=== PATIENT | female | born 2000 | race Asian ===

== ENCOUNTER 2023-06-30 17:23 | Emergency (ER) | payer OTHER, BC ==
[~2023-06-30] VITALS: Ht 165.1 cm; Wt 86.2 kg
[2023-06-30 17:30] VITALS: BP_SYST 132; PULSE 114; RESP 18; TEMP 98.8; O2SAT 98
[2023-06-30] MEDS ORDERED: IBUP-1971 PO (18:17)
[2023-06-30] MEDS ORDERED: ONDA-8 TL (18:17)
[2023-06-30] MEDS ORDERED: KETOROLAC TROMETHAMINE 60 MG/2 ML VIAL IM ONE (18:30)
[2023-06-30] MEDS ORDERED: DICL20GE TP (20:20)
[2023-06-30 20:45] VITALS: BP_SYST 120; PULSE 70; RESP 17; TEMP 98.1; O2SAT 99
== END 2023-06-30 20:37 | disposition home or self-care (01) ==
LOC: SED 17:23
DX: S16.1XXA Strain of muscle, fascia and tendon at neck level, initial encounter (principal); S50.12XA Contusion of left forearm, initial encounter; Z79.899 Other long term (current) drug therapy; V49.40XA Driver injured in collision with unspecified motor vehicles in traffic accident, initial encounter; Y93.89 Activity, other specified; Y92.89 Other specified places as the place of occurrence of the external cause; Y99.8 Other external cause status
CPT/HCPCS: 99284; 93005; 72040; 72100; 73090; 96372; J1885